=== PATIENT | male | born 1960 | race Caucasian/White ===

== ENCOUNTER 2019-10-30 07:30 | Outpatient (RCR) | payer OTHER, SELFPAY ==
[2019-09-13 14:00] VITALS: PULSE 54
[2019-09-13 14:28] VITALS: BP 160/80; PULSE 52; RESP 16; TEMP 36.4; O2SAT 97
--- NOTE | 2019-10-21 09:14 | PCCPR ---
Absent today, not feeling well.
--- NOTE | 2019-11-04 09:32 | PCCPR ---
Absent-called and left message. no reason given.
--- NOTE | 2019-11-11 15:46 | PCCPR ---
Waiting on release to return to rehab. Bill was in the emergency room last weekend, no cardiac issues were found. Call Bill today to check status, did not answer, left message.
--- NOTE | 2019-11-13 07:51 | PCCPR ---
Anders called and left message stating that he would not be returning to cardiac rehab, no reason given.
== END 2019-11-13 11:07 | disposition home or self-care (01) ==
LOC: ANHCPREHAB 07:30
PROVIDERS: PCP Family Medicine
DX: Z95.5 Presence of coronary angioplasty implant and graft (principal)
CPT/HCPCS: 93798

== ENCOUNTER 2020-04-16 07:30 | Outpatient (RCR) | payer OTHER, SELFPAY ==
[2020-01-27 12:20] VITALS: PULSE 60
--- NOTE | 2020-03-11 07:22 | PCCPR ---
Pt called yesterday stating he has sinus symptoms and is getting COVID tested. He will be absent 03/11 and likely 03/12, as results take 48 hrs.
--- NOTE | 2020-03-16 11:19 | PCCPR ---
Addendum entered by Shanti Carlson RN 03/23/20 09:16: Anders called us early this am states his cath groin site tender hopes to return on Mon. Addendum entered by Shanti Carlson RN 03/18/20 09:24: Anders contacted us he had his cardiac cath however no intervention. The MD plans to adjust his medications. States he plans to resume on Thursday 03/23. Original Note: Absent due to repeat cardiac cath Anders called his [employer] today with continued chest pressure at random times some with exertion. 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 He was not sure how long he will be out and reminded him we will need a release to return. Asked he keep us informed.
--- NOTE | 2020-04-01 08:04 | PCCPR ---
Bill absent today, received 2nd COVID vaccine yesterday and is not feeling well.
== END 2020-04-16 16:20 | disposition home or self-care (01) ==
LOC: ANHCPREHAB 07:30
PROVIDERS: PCP Family Medicine
DX: Z95.5 Presence of coronary angioplasty implant and graft (principal)
CPT/HCPCS: 93798